=== PATIENT | female | born 2000 | race Two or more races ===

== ENCOUNTER 2023-12-07 08:24 | Outpatient (REF) | payer OTHER, SELFPAY ==
--- NOTE | ~2023-12-07 | US_ITS ---
EXAMINATION: US PELVIS COMPLETE TRANSVAGINAL PELVIC ULTRASOUND: CLINICAL INFORMATION: Additional Notes/Special Instructions : Menometrorrhagia COMPARISON: None TECHNIQUE: Transabdominal imaging initially performed. For more definitive evaluation of the endometrium and ovaries, transvaginal technique was employed. FINDINGS: Uterus is retroflexed and retroverted measuring 8.2 x 3.7 x 5.2cm. Endometrium measures 1.1 cm. Right ovary measures 2.4 x 3 x 2.5 cm for a volume of 9.7 mL. Involuting 1.8 x 2.2 x 1.4 cm corpus luteum cyst. The left ovary measures 2.1 x 1.9 x 2.2 cm for a volume of 4.6 mL. There is small amount of pelvic free fluid. US/US pelvic and transvaginal IMPRESSION: Unremarkable uterus. Involuting right corpus luteum cyst, otherwise unremarkable ovaries. Small amount of free pelvic fluid, likely physiologic.
== END 2023-12-07 08:25 | disposition home or self-care (01) ==
LOC: HO.UMASIMG 08:24
PROVIDERS: Visit Provider Nurse Practitioner Women's Health
DX: N94.6 Dysmenorrhea, unspecified (principal)
CPT/HCPCS: 76830; 76856

== ENCOUNTER 2024-06-27 07:11 | Outpatient (REF) | payer OTHER, SELFPAY ==
--- NOTE | ~2024-06-27 | US_ITS ---
EXAMINATION: US PELVIS CLINICAL INFORMATION: Irregular menstrual bleeding COMPARISON: 12/07/2023 TECHNIQUE: Ultrasound of the pelvis is performed using both transabdominal and transvaginal transducers along with Doppler. Transvaginal imaging is performed due to inadequate visualization transabdominally. FINDINGS: Uterus: The uterus is retroverted and measures 7.6 x 2.4 x 4.0 cm. The myometrium appears homogeneous The double wall endometrial thickness is 12.8 mm. The uterus is smooth in contour and has normal myometrial echogenicity. No visible fibroid. Adnexa: Both ovaries are visualized. There is normal color flow to the adnexa. There is no ovarian torsion. There is no pelvic ascites or fluid collection. Right ovary measures 2.5 x 1.8 x 1.7 cm. Right ovary appears sonographically normal Left ovary measures 2.6 x 1.6 x 2.1 cm. Left ovary appears sonographically normal. US/US pelvic and transvaginal IMPRESSION: Thickened endometrium, otherwise normal ultrasound evaluation of the pelvis. Electronically signed by: Jn Bocanegra MD 06/27/2024 07:11 PM JEREMY MORALES
== END 2024-06-27 07:12 | disposition home or self-care (01) ==
LOC: HO.UMASIMG 07:11
PROVIDERS: Visit Provider Nurse Practitioner Women's Health
DX: N92.6 Irregular menstruation, unspecified (principal)
CPT/HCPCS: 76830; 76856